=== PATIENT | female | born 1940 | race Caucasian/White ===

== ENCOUNTER 2019-04-12 20:02 | Emergency (ER) | payer MEDICARE, BC ==
[~2019-04-12] VITALS: Ht 147.3 cm; Wt 72.6 kg
--- NOTE | 2019-04-12 20:11 | NUR ---
PT MILI C/O HEAD PAIN S/P HITTING HEAD ON A POLE DUR TO A GLF X 2 HOURS AGO. DENIES LOC/BLURRED VISION/N/V. PT AOX4. NAD NOTED. RESP EVEN AND UNLABORED. PT ON MONITOR IN BED 1 WITH SON AT BEDSIDE. WILL CONTINUE TO MONITOR.
[2019-04-12 20:26] VITALS: BP 171/74
--- NOTE | 2019-04-12 20:55 | NUR ---
PT TAKEN TO RADIOLOGY VIA [facility] FOR CT
--- NOTE | 2019-04-12 21:10 | NUR ---
PT RETURNED FROM CT. PT TOLERATED WELL.
--- NOTE | 2019-04-12 21:32 | NUR ---
Patient discharged to home in stable condition. Written and verbal after care instructions given. Patient verbalizes understanding of instruction. PT AMBULATORY WITH STEADY GAIT ACCOMPANIED BY SON.
== END 2019-04-12 21:33 | disposition home or self-care (01) ==
LOC: ER 20:07
DX: S09.8XXA Other specified injuries of head, initial encounter (principal); R51 Headache; I10 Essential (primary) hypertension; J44.9 Chronic obstructive pulmonary disease, unspecified; E03.9 Hypothyroidism, unspecified; I25.10 Atherosclerotic heart disease of native coronary artery without angina pectoris; F32.9 Major depressive disorder, single episode, unspecified; Z96.659 Presence of unspecified artificial knee joint; Z98.890 Other specified postprocedural states; Z60.2 Problems related to living alone; Z88.8 Allergy status to other drugs, medicaments and biological substances; W18.09XA Striking against other object with subsequent fall, initial encounter; Y93.89 Activity, other specified; Y92.89 Other specified places as the place of occurrence of the external cause; Y99.8 Other external cause status
CPT/HCPCS: 70450-TC; 72125-TC

== ENCOUNTER 2019-08-02 18:34 | Emergency (ER) | payer MEDICARE, BC ==
[~2019-08-02] VITALS: Ht 147.3 cm; Wt 74.4 kg
--- NOTE | 2019-08-02 19:38 | NUR ---
PT BIBS C/O: "BP HIGH ALL DAY" EKG DONE AT URGENT [facility]ARE, TOLD TO GO TOT ER. PT I BED 2, LAYING COMFORTABLY, LABS DRAWN AND SENT OUT.
[2019-08-02 19:42] LABS: CARBON DIOXIDE 26 mmol/L (21-32); CHLORIDE 105 mmol/L (98-107); CREATININE 0.9 mg/dL (0.6-1.3); GLUCOSE 89 mg/dL (74-106); POTASSIUM 3.7 mmol/L (3.5-5.1); SODIUM SERUM 139 mmol/L (136-145); UREA NITROGEN, BLOOD 20 mg/dL (7-18)
[2019-08-02 19:45] LABS: CALCIUM, SERUM 10.4 mg/dL (8.5-10.1)
[2019-08-02 20:49] LABS: BASOPHILS # (AUTO) 0.1 /CMM (0.0-0.2); EOSINOPHILS % (AUTO) 3.6 % (0.0-6.0); HEMATOCRIT 39 % (33-45); HEMOGLOBIN 13.5 g/dL (11.5-14.8); LYMPHOCYTES # (AUTO) 1.7 /CMM (0.8-4.8); LYMPHOCYTES % (AUTO) 22.8 % (20.0-44.0); MEAN CORPUSCULAR HGB CONC 34 g/dl (31.0-36.0); MEAN CORPUSCULAR VOLUME 89 fL (82-100); MONOCYTES # (AUTO) 0.6 /CMM (0.1-1.30); MONOCYTES % (AUTO) 8.5 % (2.0-12.0); NEUTROPHILS # (AUTO) 4.7 /CMM (1.8-8.9); NEUTROPHILS % (AUTO) 64.1 % (43.0-81.0); PLATELET COUNT (AUTO) 205 /CMM (150-450); RED BLOOD CELL COUNT(AUTO) 4.41 MIL/uL (4.0-5.2); WHITE BLOOD COUNT (AUTO) 7.4 K/uL (4.3-11.0)
[2019-08-02 21:03] VITALS: BP 115/56
--- NOTE | 2019-08-02 21:03 | NUR ---
Patient discharged to home in stable condition. Written and verbal after care instructions given. Patient verbalizes understanding of instruction.
== END 2019-08-02 21:04 | disposition home or self-care (01) ==
LOC: ER 18:38
DX: I10 Essential (primary) hypertension (principal); I25.10 Atherosclerotic heart disease of native coronary artery without angina pectoris; J44.9 Chronic obstructive pulmonary disease, unspecified; F32.9 Major depressive disorder, single episode, unspecified; E03.9 Hypothyroidism, unspecified; Z98.890 Other specified postprocedural states; Z88.8 Allergy status to other drugs, medicaments and biological substances; Z60.2 Problems related to living alone
CPT/HCPCS: 36415; 71045-TC; 80048-TC; 84484-TC; 85025-TC